=== PATIENT | male | born 1965 | race Caucasian/White ===

== ENCOUNTER 2018-05-31 11:11 | Outpatient (REF) | payer OTHER, SELFPAY ==
[2018-05-31 20:17] LABS: Cholesterol 191 mg/dL (50-200); Glucose 94 mg/dL (70-100); HDL Cholesterol 41 mg/dL (40-60); LDL CHOLESTEROL 129 mg/dL (<100); Triglyceride 68 mg/dL (30-150)
== END 2018-05-31 11:31 ==
LOC: NCHCN 11:11
PROVIDERS: PCP Specialist/Technologist Athletic Trainer; Visit Provider Nurse Practitioner Family
DX: Z00.00 Encounter for general adult medical examination without abnormal findings (principal); R06.81 Apnea, not elsewhere classified; G47.9 Sleep disorder, unspecified; M54.5 Low back pain; Z13.220 Encounter for screening for lipoid disorders; Z13.1 Encounter for screening for diabetes mellitus
CPT/HCPCS: 80061; 82947; 83721

== ENCOUNTER 2018-09-14 09:35 | Emergency (ER) | payer OTHER, SELFPAY ==
[2018-09-14 09:41] VITALS: BP 144/92; PULSE 85; RESP 17; TEMP 36.7; O2SAT 98
--- NOTE | 2018-09-14 09:41 | ED.GENADUL_ITS ---
Discharge Plan Disposition Patient Disposition: HOME Condition: Stable Discharge Details Chief Complaint: RashLesion Clinical Impression: Shingles rash Primary Care Provider: Edelmira Christensen ED Provider: Les Langston Home Meds and New Rx's Prescriptions: New acyclovir 800 mg tablet 800 mg PO Q4H 7 Days Qty: 42 RF: 0 prednisone 20 mg tablet 60 mg PO DAILY 5 Days Qty: 15 RF: 0 Discharge Instructions Instructions: Shingles (ED) Additional Instructions: follow up with your primary care provider within 1-2 weeks especially if rash is not improving if you have pain take 1000mg tylenol and 600mg ibuprofen every 6 hours for pain as needed if you feel more ill, have high fevers or severe worsening of pain return to the emergency department Medical Decision Making 53 yo male comes in with rash on his left leg for several days that is itching and mildly painful.He denies fevers or chills and denies new detergents or meds. No dyspnea or chest pain. He has on the left middle medial thigh a 1x1cm erythema area with vesicles and then 3 other areas of erythema surrounding this with ertyehma that are 3x3, 2x4 and 2x3cm in size. Rash appears to be shingles and possible also dermatitis. Will start antivirals and steroids and have him f/u with pcp. no findings on exam to suggest cellulitis or nec fasc. Differential Diagnosis shingles, contact dermatitis HPI General Mode of arrival: ambulatory . Date/Time Provider Initiated Documentation: 09/14/18 09:41 . Limitations to Documentation: no limitations . Information obtained by: patient . History of Present Illness 53 year old M presents to the emergency department with the chief complaint of rash, described as mild, and is localized to the left and lower extremity. Patient started experiencing this day(s) (3) and it has been constant. No relieving factors improve symptom(s), No exacerbating factors reported . Patient notes no other symptoms.. Related Data Home Medications Medication Instructions Recorded Confirmed acyclovir 800 mg PO Q4H 7 Days #42 tab 09/14/18 prednisone 60 mg PO DAILY 5 Days #15 tab 09/14/18 Previous Rx's Medication Instructions Recorded acyclovir 800 mg PO Q4H 7 Days #42 tab 09/14/18 prednisone 60 mg PO DAILY 5 Days #15 tab 09/14/18 Allergies Allergy/AdvReac Type Severity Reaction Status Date / Time bee venom protein (honey bee) Allergy Unverified 09/14/18 09:44 Review of Systems Review of Systems All systems reviewed & are unremarkable except as noted in HPI and below Constitutional Denies chills, Denies fever(s) and Denies weakness Cardiovascular Denies chest pain and Denies dyspnea Respiratory Denies cough and Denies dyspnea Gastrointestinal Denies abdominal pain, Denies nausea and Denies vomiting Neurologic Denies weakness PFSH Social History Smoking/Tobacco Use Status: Never Substance use type: does not use Do you feel safe at home: Yes Exam Const General: no acute distress Orientation: alert HENMT Head: normal to inspection Ears: external ears normal General nose exam: external nose normal Mouth: moist mucous membranes Eyes General: appearance normal, both eyes and all related structures Neck Neck: normal visual inspection Resp Effort & Inspection: normal respiratory effort and able to speak in complete sentences Cardio Rate: regular rate Skin General skin exam: elasticity normal Neuro General: alert and oriented x3 Extrem General: normal to inspection Psych Mental Status: mental status grossly normal
== END 2018-09-14 10:01 | disposition home or self-care (01) ==
LOC: ER 10:00
PROVIDERS: Emergency Provider Emergency Medicine; PCP Nurse Practitioner Family
DX: B02.9 Zoster without complications (principal)
CPT/HCPCS: 99283

== ENCOUNTER → 2018-09-17 10:20 | Outpatient (REF) | payer OTHER, SELFPAY ==
[2018-09-19 11:52] LABS: HSV 1 DNA Result Negative; HSV 2 DNA Result Negative
== END ==
LOC: NCHCN 10:20
PROVIDERS: PCP Nurse Practitioner Family; Visit Provider Nurse Practitioner Family
DX: R21 Rash and other nonspecific skin eruption (principal)
CPT/HCPCS: 87529

== ENCOUNTER 2019-04-02 18:56 | Outpatient (REF) | payer OTHER, SELFPAY ==
[2019-04-02 20:59] LABS: HCT 40.7 % (40.0-50.0); HGB 14.6 g/dL (13.5-17.5); Mean Corp. HGB Concentration 35.9 g/dL (32.0-36.0); Mean Corpuscular Hemoglobin 29.7 pg (27.0-33.0); Mean Corpuscular Volume 82.9 fL (80-95); Mean Platelet Volume 10.1 fL (8.0-11.0); Platelet Count 230 x1000/uL (130-400); RBC 4.91 m/cumm (4.50-6.00); RBC Distribution Width 13.4 % (11.8-14.1); White Blood Cell Count 5.81 k/cumm (4.4-10.8)
[2019-04-02 21:25] LABS: ALT 45 U/L (16-63); AST 23 U/L (15-37); Albumin 3.8 g/dL (3.4-5.0); Alkaline Phosphatase 90 U/L (46-116); Anion Gap 9.3 mmol/L (3-11); BUN 17 mg/dL (7-18); Bilirubin, Total 0.3 mg/dL (0.2-1.0); CO2 27.7 mmol/L (21.0-32.0); CREATININE 0.89 mg/dL (0.70-1.30); Chloride 107 mmol/L (98-107); Glucose 88 mg/dL (74-106); Sodium 144 mmol/L (136-145); TSH (W/Ref FT4) 1.45 uIU/mL (0.36-3.74); Total Protein 6.5 g/dL (6.4-8.2); Vitamin B12 417 pg/mL (193-986)
[2019-04-03 04:40] LABS: Vitamin D 25 Total 10.1 ng/ml (30-100)
== END 2019-04-02 19:16 ==
LOC: NCHCN 18:56
PROVIDERS: PCP Nurse Practitioner Family; Visit Provider Physician Assistant Medical
DX: R40.0 Somnolence (principal)
CPT/HCPCS: 80053; 82306; 85027; 82607; 84443

== ENCOUNTER 2019-06-04 15:27 | Outpatient (REF) | payer OTHER, SELFPAY ==
[2019-06-04 19:29] LABS: HDL Cholesterol 36 mg/dL (40-60); LDL CHOLESTEROL 125 mg/dL (<100)
[2019-06-05 04:44] LABS: Vitamin D 25 Total 23.6 ng/ml (30-100)
== END 2019-06-04 15:47 ==
LOC: NCHCN 15:27
PROVIDERS: PCP Nurse Practitioner Family; Visit Provider Nurse Practitioner Family
DX: Z00.00 Encounter for general adult medical examination without abnormal findings (principal); R21 Rash and other nonspecific skin eruption; R40.0 Somnolence; G47.33 Obstructive sleep apnea (adult) (pediatric)
CPT/HCPCS: 82306; 83721; 83718

== ENCOUNTER 2020-06-16 10:39 | Outpatient (REF) | payer OTHER, SELFPAY ==
[2020-06-16 16:33] LABS: Calculated LDL 120 mg/dL (<100); Cholesterol 174 mg/dL (<200); Glucose 102 mg/dL (74-106); HDL Cholesterol 44 mg/dL (40-60); Triglyceride 54 mg/dL (<150)
== END 2020-06-16 10:40 | disposition home or self-care (01) ==
LOC: NCHCN 10:39
PROVIDERS: PCP Nurse Practitioner Family; Visit Provider Nurse Practitioner Family
DX: Z00.00 Encounter for general adult medical examination without abnormal findings (principal); Z13.220 Encounter for screening for lipoid disorders; Z13.1 Encounter for screening for diabetes mellitus
CPT/HCPCS: 80061; 82947

== ENCOUNTER 2020-06-18 04:34 | Outpatient (CLI) | payer OTHER, SELFPAY ==
--- NOTE | 2020-06-18 14:57 | DI.RAD_ITS ---
Exam(s) XR CHEST 2V PA LATERAL EXAM: XR CHEST 2V PA LATERAL CLINICAL HISTORY: PERSISTENT COUGH, R05 TECHNIQUE: 2D digital imaging was performed. COMPARISON: No exams were available for comparison FINDINGS: MEDIASTINUM: Normal. HEART: Normal. PULMONARY VASCULATURE: Normal. LUNGS: Clear. PLEURAL SPACE: No pleural effusion or pneumothorax. BONE:Normal. OTHER FINDINGS:Normal. IMPRESSION: No acute pulmonary findings. DATA REPOSITORY: RADIATION DOSE DELIVERED:
== END 2020-06-18 04:54 ==
PROVIDERS: PCP Nurse Practitioner Family; Visit Provider Nurse Practitioner Family
DX: R05 Cough (principal)
CPT/HCPCS: 71046

== ENCOUNTER 2021-07-05 15:26 | Outpatient (REF) | payer OTHER, SELFPAY ==
[2021-07-05 19:41] LABS: Calculated LDL 117 mg/dL (<100); Cholesterol 187 mg/dL (<200); Glucose 100 mg/dL (74-106); HDL Cholesterol 43 mg/dL (40-60); Triglyceride 137 mg/dL (<150)
== END 2021-07-05 15:27 | disposition home or self-care (01) ==
LOC: NCHCN 15:26
PROVIDERS: PCP Nurse Practitioner Family; Visit Provider Nurse Practitioner Family
DX: Z00.00 Encounter for general adult medical examination without abnormal findings (principal); Z13.1 Encounter for screening for diabetes mellitus; Z13.220 Encounter for screening for lipoid disorders
CPT/HCPCS: 80061; 82947

== ENCOUNTER 2021-10-19 08:55 | Outpatient (REF) | payer BC, SELFPAY ==
--- NOTE | 2021-10-19 08:25 | SKI_PTH ---
PATIENT: Hunter Angeles LOC: [facility] U#:[id number] AGE/SX: 56/M ROOM: RE10/19/[address]: Tahir Ortiz MD : [id number] BED: DIS: 10/19/2021 SPEC #: [id number] RECD: 10/19/21 16:22 STATUS: DEB REMarino #: [id number] JANIS: 10/19/21 08:[address]: Tahir Ortiz DEPT: Surgical Specimen RECD BY: Millie Holbrook ENTERED: 10/19/21 16:22 SP TYPE: LIZBET MEDELLIN DR: Edelmira Christensen Tissues: 1 - SKIN BIOPSY(SHAVE/PUNCH) Procedures: SKIN LEVEL 4 Comments: [id number]
== END 2021-10-19 08:56 | disposition home or self-care (01) ==
LOC: LBN 08:55
PROVIDERS: PCP Nurse Practitioner Family; Visit Provider Otolaryngology
DX: D22.39 Melanocytic nevi of other parts of face (principal)
CPT/HCPCS: 88305

== ENCOUNTER 2024-08-01 23:10 | Outpatient (REF) | payer BC, SELFPAY ==
[2024-08-01 20:02] LABS: Abs Immature Grans 0.01 10^3/uL (0.0-0.06); Absolute Basophil Count 0.06 10^3/uL (0.0-0.2); Absolute Eosinophil Count 0.08 10^3/uL (0.0-0.7); Absolute Lymphocyte Count 1.12 10^3/uL (1.2-3.4); Absolute Monocyte Count 0.54 10^3/uL (0.1-0.8); Absolute Neutrophil Count 3.19 10^3/uL (1.2-6.7); Basophils % 1.2 %; Eosinophils % 1.6 %; HCT 42.1 % (40.0-50.0); Immature Grans % 0.2 %; Lymphocytes % 22.4 %; MCH 29.4 pg (27.0-33.0); MCHC 35.6 % (32.0-36.0); MCV 83 fL (80-95); Monocytes % 10.8 %; Neutrophils % 63.8 %; Platelet Count 178 10^3/uL (130-400); RDW 12.9 % (11.8-14.1); RDW-SD 38.6 fL
[2024-08-01 20:21] LABS: Hemoglobin A1C 5.2 % (<5.7)
[2024-08-01 20:35] LABS: ALT 58 U/L (16-63); AST 24 U/L (15-37); Alkaline Phosphatase 87 U/L (46-116); Anion Gap 7.8 mmol/L (3-11); BUN 17 mg/dL (7-18); Bilirubin, Total 0.4 mg/dL (0.2-1.0); CO2 27.2 mmol/L (21.0-32.0); CREATININE 0.9 mg/dL (0.70-1.30); Calcium 8.5 mg/dL (8.5-10.1); Calculated LDL 138 mg/dL (<100); Chloride 105 mmol/L (98-107); Cholesterol 202 mg/dL (<200); Glucose 114 mg/dL (74-106); HDL Cholesterol 45 mg/dL (>or=40); Potassium 3.5 mmol/L (3.5-5.1); Sodium 140 mmol/L (136-145); TSH 1.54 uIU/mL (0.36-3.74); Total Protein 6.9 g/dL (6.4-8.2); Triglyceride 98 mg/dL (<150); Vitamin D 25 Total 25 ng/mL (30-100)
[2024-08-04 10:21] LABS: PSA, Diagnostic 1.5 ng/mL (<=3.5)
[2024-08-04 10:38] LABS: Hepatitis C Ab w Rflx HCV PCR Negative (Negative)
== END 2024-08-01 23:11 | disposition home or self-care (01) ==
LOC: NCHCN 23:10
PROVIDERS: Visit Provider Family Medicine
DX: Z00.00 Encounter for general adult medical examination without abnormal findings (principal)
CPT/HCPCS: 80053; 80061; 82306; 86803; 83036; 84153; 84443; 85025